=== PATIENT | female | born 1985 | race Caucasian/White ===

== ENCOUNTER 2017-03-20 18:48 | Emergency (ER) | payer SELFPAY ==
[2017-03-20] MEDS ORDERED: Ondansetron 4 MG Tab.DIS PO ONE (20:03)
--- NOTE | 2017-03-21 03:46 | ER ---
DATE SEEN: 03/20/2017 REASON FOR VISIT: Abdominal cramps. HISTORY OF PRESENT ILLNESS: This is a 31-year-old female complaining of abdominal cramps, nausea, and vomiting and is worried about , she has had two delayed periods. Sexually active. REVIEW OF SYSTEMS: No fever or chills. Some nausea. MEDICATIONS: Reviewed. ALLERGIES: Reviewed. SOCIAL HISTORY: Noncontributory. PHYSICAL EXAMINATION: VITAL SIGNS: Blood pressure is normal. Afebrile. MENTAL STATUS: Alert. Answers questions appropriately. SKIN: No pallor or jaundice. ENT negative. LABORATORY: Urine is negative. IMPRESSION: Viral gastroenteritis and pelvic cramps. PLAN: Zofran 4 mg ODT q.6 hours p.r.n. FOLLOWUP: Follow up in the office if symptoms do not improve in 1 to 2 days. TIME SEEN: 1945 hours. /[id number] TANISHA/JOHAN
== END 2017-03-20 20:07 | disposition home or self-care (01) ==
LOC: FB.ED 18:48
DX: A08.4 Viral intestinal infection, unspecified (principal); R10.2 Pelvic and perineal pain
CPT/HCPCS: 81025; 99283; 99284; A9270